=== PATIENT | female | born 2000 | race Caucasian/White ===

== ENCOUNTER 2021-03-09 17:31 | Emergency (ER) | payer OTHER, MEDICAID ==
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
[2021-03-09] MEDS ORDERED: HYDROmorphone 1 MG/ML Syringe IM ONE (17:52)
[2021-03-09 18:06] LABS: ANION GAP 14.9 mEq/L (7-13); CHLORIDE,CL 105 mmol/L (98-107); SODIUM,NA 143 mmol/L (136-145)
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
[2021-03-09] MEDS ORDERED: Acetaminophen 500 MG Tab PO ONE (18:53)
--- NOTE | 2021-03-09 19:40 | CR ---
PROCEDURE INFORMATION: Exam: XR Cervical Spine Exam date and time: 03/09/2021 7:00 PM Age: 20 years old Clinical indication: Other: Flex and ext only as requested by rad; Additional info: R/O ligamentous injury due to findings of CT TECHNIQUE: Imaging protocol: XR of the cervical spine. Views: 6 or more views. COMPARISON: CT Cervical Spine wo Cont 03/09/2021 5:51 PM FINDINGS: Bones/joints: Straightening of the cervical spine, as could be seen with spasm or positioning. No abnormal vertebral body translocation on the flexion or extension views. Vertebral body heights are well preserved. There is no significant disc space narrowing. The spinal canal is patent. No aggressive osseous lesions. Soft tissues: There is no significant soft tissue swelling. The prevertebral soft tissues are normal. Other findings: There is no evidence of acutely displaced fractures. There is no evidence of joint dislocation. The airways are patent. IMPRESSION: 1. No definitive vertebral body translocation on the flexion or extension views to suggest ligamentous injury at this time. There is straightening of the cervical spine which is most probably related to spasm or positioning. 2. Negative for acute skeletal pathology.
== END 2021-03-09 20:25 | disposition home or self-care (01) ==
LOC: DL.ED 17:31
DX: S16.1XXA Strain of muscle, fascia and tendon at neck level, initial encounter (principal); V87.7XXA Person injured in collision between other specified motor vehicles (traffic), initial encounter; Y92.410 Unspecified street and highway as the place of occurrence of the external cause
CPT/HCPCS: 36415; 72052; 72125; 72128; 73030; 80053; 84703; 85025; 96372; 99283; 99284; A9270; J1170